=== PATIENT | female | born 1960 | race Two or more races ===

== ENCOUNTER 2025-11-03 15:09 | Outpatient (CLI) | payer OTHER | END 2025-11-03 15:11 | disposition home or self-care (01) | LOC: RAD 15:09 | PROVIDERS: ATTEND Specialist | DX: M54.50 Low back pain, unspecified (principal) ==

== ENCOUNTER 2025-11-04 07:32 | Outpatient (CLI) | payer OTHER ==
[2025-11-04 08:00] LABS: URINE APPEARANCE Clear; URINE BACTERIA 3655.9 uL (0.0-1933); URINE BILIRRUBIN Negative (NEGATIVE); URINE BLOOD Small; URINE COLOR Yellow; URINE EPITHELIAL CELLS 27.5 uL (0.0-38.8); URINE GLUCOSE Negative (NEGATIVE); URINE KETONE Negative (NEGATIVE); URINE LEUKOCYTE Negative; URINE NITRATE Negative; URINE RBC 15.5 uL (0.0-20.8); URINE UROBILINOGEN 1.0 E.U./dl; URINE WBC 36.6 uL (0.0-23.2)
[2025-11-04 08:05] LABS: URINE CAST 0.56 uL (0.0-1.40); URINE PROTEIN 100 (NEGATIVE)
[2025-11-04 08:27] LABS: BASO % 1.4 % (0.1-1.2); EOS # 0.19 (0.04-0.54); EOS % 3.3 % (0.7-7.0); LYMPH # 2.29 (1.18-3.74); LYMPH % 39.6 % (19.3-53.1); MEAN PLATELET VOLUME 11.40 fl (9.4-12.4); MONO # 0.43 (0.24-0.82); MONO % 7.4 % (4.7-12.5); NEUT # 2.79 (1.56-6.13); NEUT % 48.1 % (34.0-71.1); RED CELL DISTRIBUTION WIDTH 12.9 % (11.6-14.4)
[2025-11-04 09:18] LABS: ALT/SGPT 35.0 U/L (12-78); AST/SGOT 29.0 U/L (15-37); BILIRUBIN TOTAL 1.36 mg/dL (0.3-1.2); BUN CREA RATIO 16.0 (7.0-25.0); CREATININE SERUM 0.86 mg/dL (0.55-1.02); GFR 65.81; GLOBULINA 4.0 G/DL (2.4-3.5); OSMOLALITY SERUM 291.0 MOSM/KG (275-295)
[2025-11-04 09:19] LABS: GLUCOSE FASTING 200.0 mg/dL (65-100)
== END 2025-11-04 07:33 | disposition home or self-care (01) ==
LOC: LAB 07:32
PROVIDERS: ATTEND Specialist
DX: R53.83 Other fatigue (principal)